=== PATIENT | female | born 1985 | race African-American/Black ===

== ENCOUNTER 2018-06-12 04:04 | Inpatient (IN) | payer MEDICAID ==
[~2018-06-12] VITALS: Ht 160 cm; Wt 81.2 kg
[~2018-06-12 04:04] MED LIST: PREN-88 PO
[2018-06-12] MEDS ORDERED: DEXT 5%/LR + PITOCIN 20UNITS/L 1,000 ML IV SCH ×2 (04:09→06:08)
[2018-06-12] MEDS ORDERED: LACTATED RINGERS 1,000 ML IV SCH (04:09)
[2018-06-12] MEDS ORDERED: LIDOCAINE HCL 1% 20ML VIAL (Pyxis) INJ INFIL SCH (04:15)
[2018-06-12] MEDS ORDERED: METHYLERGONOVINE MALEATE 0.2 MG/ML IM PRN (04:15)
[2018-06-12] MEDS ORDERED: BUTORPHANOL TARTRATE 2 MG/ML VIAL IV PRN (04:15)
[2018-06-12] MEDS ORDERED: CARBOPROST TROMETHAMINE 250 MCG/ML AMPUL IM PRN (04:15)
[2018-06-12] MEDS ORDERED: NALOXONE HCL 0.4 MG/ML 1ML VIAL IM PRN (04:15)
[2018-06-12] MEDS ORDERED: PENICILLIN G POTASSIUM 5 MMU in DEXT 5% WATER 100 ML IV NR (04:30)
[2018-06-12 04:56] LABS: BASOPHILS % 0.4 % (0.0-2.0); EOSINOPHILS % 0.9 % (0.0-5.0); HEMATOCRIT. 39.7 % (36.0-48.0); HEMOGLOBIN. 12.9 g/dL (12.0-16.0); LYMPHOCYTES % 27.1 % (20.0-50.0); MEAN CORPUSCULAR HEMOGLOBIN 25.9 pg (28.0-32.0); MEAN CORPUSCULAR VOLUME 79.4 fL (81.0-99.0); MEAN PLATELET VOLUME 8.8 fl (7.4-10.4); NEUTROPHILS % 59.6 % (40.0-76.0); PLATELET 116 x1000/uL (130-400); RED BLOOD CELL COUNT 5.01 mill/uL (4.2-5.4); RED CELL DISTRIBUTION WIDTH 25.9 % (11.6-14.6)
[2018-06-12 05:04] LABS: INR 0.9; PARTIAL THROMBOPLASTIN TIME 26.1 sec (23.4-31.0); PROTHROMBIN TIME 9.4 sec (9.1-11.1)
[2018-06-12 05:31] LABS: PLATELET ESTIMATE DECREASED
[2018-06-12 05:51] LABS: CLARITY URINE CLEAR (CLEAR); COLOR URINE YELLOW (YELLOW); KETONES URINE NEGATIVE (NEGATIVE); LEUKOCYTE ESTERASE URINE NEGATIVE (NEGATIVE); NITRITE URINE NEGATIVE (NEGATIVE); OCCULT BLOOD URINE NEGATIVE (NEGATIVE); PROTEIN URINE NEGATIVE (NEGATIVE); SPECIFIC GRAVITY URINE 1.011 (1.005-1.030)
[2018-06-12] MEDS ORDERED: LIDOCAINE HCL/PF 1% 10 MG/ML 30ML VIAL ONE (05:51)
[2018-06-12 06:07] LABS: HEPATITIS B SURFACE ANTIGEN NEGATIVE
[2018-06-12] MEDS ORDERED: BENZOCAINE/LANOLIN/ALOE VERA SPRAY TOP PRN (06:15)
[2018-06-12] MEDS ORDERED: GLYCERIN/WITCH HAZEL LEAF MEDICATED PAD TOP PRN (06:15)
[2018-06-12 06:53] LABS: CHLORIDE 106 mEq/L (98-107)
[2018-06-12 07:38] LABS: CANNABINOID URINE SCREEN NEGATIVE (NEGATIVE); METHADONE URINE SCREEN NEGATIVE (NEGATIVE); OPIATES URINE SCREEN NEGATIVE (NEGATIVE); PHENCYCLIDINE URINE SCREEN NEGATIVE (NEGATIVE)
[2018-06-12 07:50] LABS: *AMPHETAMINES SCREEN URINE NEGATIVE (NEGATIVE); *BARBITURATES SCREEN URINE NEGATIVE (NEGATIVE); *BENZODIAZEPINES SCREEN URINE NEGATIVE (NEGATIVE); *COCAINE SCREEN URINE NEGATIVE (NEGATIVE)
[2018-06-12 08:30] VITALS: BP 121/85
[2018-06-12 09:00] VITALS: BP 131/84
[2018-06-12] MEDS ORDERED: BISACODYL 10MG SUPP PR PRN (09:00)
[2018-06-12] MEDS ORDERED: INFLUENZA VIRUS VACCINE(AFLURIA) 0.5ML SYR IM ONE (09:00)
[2018-06-12 09:30] VITALS: BP 125/76
[2018-06-12] MEDS: ACETAMINOPHEN WITH CODEINE 300/30MG TABLET PO PRN ×3 (10:22→20:10)
[2018-06-12 19:30] VITALS: BP 111/73
[2018-06-12] MEDS: SIMETHICONE 80MG TABLET CHEW PO SCH (20:49)
[2018-06-12] MEDS: DOCUSATE SODIUM 100MG CAPSULE PO SCH (20:49)
[2018-06-12] MEDS: IBUPROFEN 400MG TABLET PO PRN (21:58)
[2018-06-12] MEDS: MAGNESIUM/ALUMINUM HYDROXIDE/SIMETHICONE 30ML UDC PO SCH (21:58)
[2018-06-13 04:10] VITALS: BP 114/66
[2018-06-13 07:42] LABS: BASOPHILS % 0.6 % (0.0-2.0); EOSINOPHILS % 1.9 % (0.0-5.0); HEMATOCRIT. 36.1 % (36.0-48.0); HEMOGLOBIN. 11.9 g/dL (12.0-16.0); LYMPHOCYTES % 22.6 % (20.0-50.0); MEAN CORPUSCULAR HEMOGLOBIN 26.3 pg (28.0-32.0); MEAN CORPUSCULAR VOLUME 79.9 fL (81.0-99.0); NEUTROPHILS % 66.9 % (40.0-76.0); PLATELET 129 x1000/uL (130-400); RED BLOOD CELL COUNT 4.52 mill/uL (4.2-5.4); RED CELL DISTRIBUTION WIDTH 24.9 % (11.6-14.6)
[2018-06-13 08:00] VITALS: BP 118/76
[2018-06-13] MEDS: PRENATAL VIT/FE FUMARATE/FA TABLET PO SCH (08:30)
[2018-06-13] MEDS: SIMETHICONE 80MG TABLET CHEW PO SCH ×3 (08:31→19:36)
[2018-06-13] MEDS: ACETAMINOPHEN WITH CODEINE 300/30MG TABLET PO PRN ×2 (12:46→19:37)
[2018-06-13] MEDS: FERROUS SULFATE 325MG TABLET PO SCH (12:46)
[2018-06-13 16:05] VITALS: BP 127/76
[2018-06-13] MEDS: DOCUSATE SODIUM 100MG CAPSULE PO SCH (19:35)
[2018-06-13] MEDS: MAGNESIUM/ALUMINUM HYDROXIDE/SIMETHICONE 30ML UDC PO SCH (19:36)
[2018-06-13 20:25] VITALS: BP 121/84
[2018-06-13] MEDS: IBUPROFEN 400MG TABLET PO PRN (20:47)
[2018-06-14 04:20] VITALS: BP 121/52
[2018-06-14 08:00] VITALS: BP 127/83
[2018-06-14] MEDS: SIMETHICONE 80MG TABLET CHEW PO SCH (09:14)
[2018-06-14] MEDS: IBUPROFEN 400MG TABLET PO PRN (09:14)
[2018-06-14] MEDS: FERROUS SULFATE 325MG TABLET PO SCH (09:14)
[2018-06-14] MEDS: PRENATAL VIT/FE FUMARATE/FA TABLET PO SCH (09:14)
[2018-06-14] MEDS: MAGNESIUM/ALUMINUM HYDROXIDE/SIMETHICONE 30ML UDC PO SCH (09:14)
== END 2018-06-14 12:20 | disposition home or self-care (01) | DRG 560 ==
LOC: OBSVTOIN 04:04 → L&D 04:04 → 7EST PP/OB 08:32
PROVIDERS: ADMIT Obstetrics & Gynecology; ATTEND Obstetrics & Gynecology
PROC: 10D07Z6 Extraction of Products of Conception, Vacuum, Via Natural or Artificial Opening (ICD-10-PCS; principal; 2018-06-12)
DX: O77.0 Labor and delivery complicated by meconium in amniotic fluid (principal); D69.6 Thrombocytopenia, unspecified; O99.12 Other diseases of the blood and blood-forming organs and certain disorders involving the immune mechanism complicating childbirth; O16.4 Unspecified maternal hypertension, complicating childbirth; Z37.0 Single live birth; Z3A.39 39 weeks gestation of pregnancy
CPT/HCPCS: 36415; 80053; 80305; 81003; 84550; 85025; 85384; 85610; 85730; 86592; 86703; 86762; 86850; 86900; 87340; 99281; J0595; J2310; J2540; J2590; J3490; J7060; J7120

== ENCOUNTER 2020-12-19 12:14 | Emergency (ER) | payer MEDICAID ==
[~2020-12-19] VITALS: Ht 160 cm; Wt 95.0 kg
[2020-12-19 12:47] VITALS: BP 148/70
== END 2020-12-19 14:34 | disposition home or self-care (01) ==
LOC: ER 12:47
DX: T19.2XXA Foreign body in vulva and vagina, initial encounter (principal); Z79.899 Other long term (current) drug therapy; X58.XXXA Exposure to other specified factors, initial encounter; Y93.89 Activity, other specified; Y92.89 Other specified places as the place of occurrence of the external cause; Y99.8 Other external cause status
CPT/HCPCS: 99281; Z7610

== ENCOUNTER 2021-07-14 14:56 | Emergency (ER) | payer MEDICAID ==
[~2021-07-14] VITALS: Ht 170.2 cm; Wt 91.0 kg
[2021-07-14 15:03] VITALS: BP 130/93
== END 2021-07-14 18:16 | disposition left against medical advice (07) ==
LOC: ER 15:18
DX: Z53.21 Procedure and treatment not carried out due to patient leaving prior to being seen by health care provider (principal)

== ENCOUNTER 2022-07-29 09:01 | Emergency (ER) | payer MEDICAID ==
[~2022-07-29] VITALS: Ht 157.5 cm; Wt 96.0 kg
[2022-07-29] MEDS ORDERED: TETRACAINE 0.5% OPHTH DROPS 4ML LEFTEYE ONE (10:30)
[2022-07-29] MEDS ORDERED: FLUORESCEIN SODIUM 1MG/STRIP LEFTEYE ONE (10:30)
[2022-07-29 10:42] LABS: BASOPHILS % 0.7 % (0.0-2.0); EOSINOPHILS % 5.4 % (0.0-5.0); HEMATOCRIT. 41.2 % (36.0-48.0); HEMOGLOBIN. 12.7 g/dL (12.0-16.0); LYMPHOCYTES % 27.8 % (20.0-50.0); MEAN CORPUSCULAR HEMOGLOBIN 22.3 pg (28.0-32.0); MEAN CORPUSCULAR VOLUME 72.6 fL (81.0-99.0); MEAN PLATELET VOLUME 8.4 fl (7.4-10.4); MONOCYTES % 10.4 % (2.0-8.0); NEUTROPHILS % 55.7 % (40.0-76.0); PLATELET 299 x1000/uL (130-400); RED BLOOD CELL COUNT 5.68 mill/uL (4.2-5.4); RED CELL DISTRIBUTION WIDTH 17.7 % (11.6-14.6)
[2022-07-29 11:09] LABS: PARTIAL THROMBOPLASTIN TIME 27.8 sec (23.4-31.0); PROTHROMBIN TIME 10.9 sec (9.6-11.0)
[2022-07-29 13:11] LABS: CHLORIDE 106 mEq/L (98-107)
[2022-07-29 15:42] VITALS: BP 153/95
[2022-07-29] MEDS ORDERED: IBUP-2028 MT (15:58)
[2022-07-29 16:09] LABS: HCG SCREEN NEGATIVE
== END 2022-07-29 16:18 | disposition home or self-care (01) ==
LOC: ER 09:01
DX: H57.12 Ocular pain, left eye (principal); R51.9 Headache, unspecified; I49.9 Cardiac arrhythmia, unspecified
CPT/HCPCS: 36415; 71045; 80053; 83880; 84484; 84703; 85025; 93005; 99285